=== PATIENT | female | born 1995 | race Caucasian/White ===

== ENCOUNTER 2020-05-10 12:41 | Inpatient (IN) | payer OTHER, MEDICAID ==
[~2020-05-10] VITALS: Ht 165.1 cm; Wt 78.9 kg
[2020-05-10 13:54] LABS: BASOPHILS % 0.3 % (0.0-2.0); EOSINOPHILS % 0.8 % (0.0-5.0); HEMATOCRIT. 32.5 % (36.0-48.0); HEMOGLOBIN. 10.9 g/dL (12.0-16.0); LYMPHOCYTES % 18.4 % (20.0-50.0); MEAN CORPUSCULAR HEMOGLOBIN 28.2 pg (28.0-32.0); MEAN CORPUSCULAR VOLUME 84.2 fL (81.0-99.0); MONOCYTES % 8.7 % (2.0-8.0); NEUTROPHILS % 71.8 % (40.0-76.0); PLATELET 248 x1000/uL (130-400); RED BLOOD CELL COUNT 3.86 mill/uL (4.2-5.4); RED CELL DISTRIBUTION WIDTH 14.4 % (11.6-14.6)
[2020-05-10 14:05] LABS: INR 0.9; PARTIAL THROMBOPLASTIN TIME 26.2 sec (23.4-31.0); PROTHROMBIN TIME 9.9 sec (9.6-11.0)
[2020-05-10 14:07] LABS: CLARITY URINE CLEAR (CLEAR); COLOR URINE YELLOW (YELLOW); KETONES URINE NEGATIVE (NEGATIVE); LEUKOCYTE ESTERASE URINE 1+ (NEGATIVE); NITRITE URINE NEGATIVE (NEGATIVE); OCCULT BLOOD URINE NEGATIVE (NEGATIVE); PROTEIN URINE NEGATIVE (NEGATIVE); SPECIFIC GRAVITY URINE 1.011 (1.005-1.030)
[2020-05-10 14:24] LABS: *AMPHETAMINES SCREEN URINE NEGATIVE (NEGATIVE); *BARBITURATES SCREEN URINE NEGATIVE (NEGATIVE); *BENZODIAZEPINES SCREEN URINE NEGATIVE (NEGATIVE); *COCAINE SCREEN URINE NEGATIVE (NEGATIVE); CANNABINOID URINE SCREEN NEGATIVE (NEGATIVE); METHADONE URINE SCREEN NEGATIVE (NEGATIVE); OPIATES URINE SCREEN NEGATIVE (NEGATIVE); PHENCYCLIDINE URINE SCREEN NEGATIVE (NEGATIVE)
[2020-05-10] MEDS ORDERED: FOLI-43 MT (14:45)
[2020-05-10] MEDS ORDERED: PREN1TAB78 MT (14:45)
[2020-05-10 14:49] LABS: HEPATITIS B SURFACE ANTIGEN NEGATIVE
[2020-05-10] MEDS ORDERED: LIDOCAINE HCL 1% 20ML VIAL (Pyxis) INJ INFIL SCH (15:15)
[2020-05-10] MEDS ORDERED: CARBOPROST TROMETHAMINE 250 MCG/ML AMPUL IM PRN (15:15)
[2020-05-10] MEDS ORDERED: NALOXONE HCL 0.4 MG/ML 1ML VIAL IM PRN (15:15)
[2020-05-10] MEDS ORDERED: METHYLERGONOVINE MALEATE 0.2 MG/ML IM PRN (15:15)
[2020-05-10] MEDS ORDERED: DEXT 5%/LR + PITOCIN 20UNITS/L 1,000 ML IV SCH ×2 (15:15→22:30)
[2020-05-10] MEDS ORDERED: BUTORPHANOL TARTRATE 2 MG/ML VIAL IV PRN (15:15)
[2020-05-10 15:21] LABS: CHLORIDE 110 mEq/L (98-107)
[2020-05-10 15:39] LABS: D-DIMER 0.97 mg/L FEU (<0.50)
[2020-05-10] MEDS ORDERED: MISOPROSTOL 100MCG TABLET VG PRN (17:00)
[2020-05-10] MEDS: LACTATED RINGERS 1,000 ML IV SCH (17:29)
[2020-05-10] MEDS ORDERED: MAGNESIUM 4 G PREMIX 100 ML IV ONE (19:30)
[2020-05-10] MEDS: MAGNESIUM 20 G PREMIX (L & D) 500 ML IV SCH (20:09)
[2020-05-10] MEDS ORDERED: MAGNESIUM 2 G PREMIX 50 ML IV ONE (23:30)
[2020-05-11] MEDS: LACTATED RINGERS 1,000 ML IV SCH ×3 (02:08→20:24)
[2020-05-11] MEDS: MAGNESIUM 20 G PREMIX (L & D) 500 ML IV SCH (06:03)
[2020-05-11] MEDS ORDERED: ROPIVACAINE HCL 10MG/ML 20 ML VIAL EPI ONE (06:30)
[2020-05-11] MEDS ORDERED: FENTANYL CITRATE/PF 50MCG/ML 2ML VIAL ONE (06:36)
[2020-05-11] MEDS ORDERED: BUPIVACAINE HCL/PF 0.25% (2.5MG/ML) 10ML ONE (06:36)
[2020-05-11] MEDS ORDERED: ROPIVACAINE HCL/PF EPIDURAL 200 ML EPI PRN ×2 (07:15→22:00)
[2020-05-11] MEDS ORDERED: ONDANSETRON HCL 4MG/2ML INJ IV PRN (07:30)
[2020-05-11] MEDS ORDERED: DIPHENHYDRAMINE 50MG/ML VIAL IV PRN (07:30)
[2020-05-11] MEDS ORDERED: ROPIVACAINE HCL/PF EPIDURAL 200 ML EPI SCH (07:30)
[2020-05-11] MEDS ORDERED: ROPIVACAINE HCL 2MG/ML (0.2%) 100ML BAG IR ONE (22:00)
[2020-05-12] MEDS ORDERED: AMPICILLIN 2,000 MG in SODIUM CHLORIDE 0.9% 100 ML IV SCH (02:00)
[2020-05-12] MEDS ORDERED: BISACODYL 10MG SUPP PR PRN (03:15)
[2020-05-12] MEDS ORDERED: GLYCERIN/WITCH HAZEL LEAF MEDICATED PAD TOP PRN (03:15)
[2020-05-12] MEDS ORDERED: ACETAMINOPHEN WITH CODEINE 300/30MG TABLET PO PRN (03:15)
[2020-05-12] MEDS ORDERED: HEMORRHOIDAL SUPP PR PRN (03:15)
[2020-05-12] MEDS ORDERED: DEXT 5%/LR + PITOCIN 20UNITS/L 1,000 ML IV SCH (03:15)
[2020-05-12] MEDS ORDERED: IBUPROFEN 400MG TABLET PO PRN (03:15)
[2020-05-12] MEDS ORDERED: LANOLIN OINT 7GM TUBE TOP PRN (03:15)
[2020-05-12] MEDS: IBUPROFEN 800MG TABLET PO PRN ×3 (03:48→19:29)
[2020-05-12 05:00] VITALS: BP 113/73
[2020-05-12 06:00] VITALS: BP 114/70
[2020-05-12] MEDS ORDERED: DIPHENHYDRAMINE 25MG CAPSULE PO PRN (07:00)
[2020-05-12] MEDS: MAGNESIUM/ALUMINUM HYDROXIDE/SIMETHICONE 30ML UDC PO SCH ×3 (07:30→21:19)
[2020-05-12 08:00] VITALS: BP 123/78
[2020-05-12] MEDS: SIMETHICONE 80MG TABLET CHEW PO SCH ×3 (08:00→21:19)
[2020-05-12] MEDS: PRENATAL VIT/FE FUMARATE/FA TABLET PO SCH (08:46)
[2020-05-12 15:48] VITALS: BP 123/84
[2020-05-12 20:00] VITALS: BP 114/73
[2020-05-12] MEDS ORDERED: DOCUSATE SODIUM 100MG CAPSULE PO SCH (21:00)
[2020-05-13] MEDS: IBUPROFEN 800MG TABLET PO PRN ×2 (02:02→08:41)
[2020-05-13 04:00] VITALS: BP 120/77
[2020-05-13 06:10] LABS: BASOPHILS % 0.2 % (0.0-2.0); EOSINOPHILS % 0.7 % (0.0-5.0); HEMATOCRIT. 23.6 % (36.0-48.0); HEMOGLOBIN. 7.8 g/dL (12.0-16.0); LYMPHOCYTES % 17.9 % (20.0-50.0); MEAN CORPUSCULAR HEMOGLOBIN 28.5 pg (28.0-32.0); MEAN PLATELET VOLUME 9.3 fl (7.4-10.4); MONOCYTES % 7.1 % (2.0-8.0); NEUTROPHILS % 74.1 % (40.0-76.0); PLATELET 170 x1000/uL (130-400); RED BLOOD CELL COUNT 2.75 mill/uL (4.2-5.4); RED CELL DISTRIBUTION WIDTH 14.5 % (11.6-14.6)
[2020-05-13] MEDS ORDERED: FERROUS SULFATE 325MG TABLET PO SCH (07:30)
[2020-05-13 08:30] VITALS: BP 123/82
[2020-05-13] MEDS: MAGNESIUM/ALUMINUM HYDROXIDE/SIMETHICONE 30ML UDC PO SCH (08:40)
[2020-05-13] MEDS: SIMETHICONE 80MG TABLET CHEW PO SCH (08:40)
[2020-05-13] MEDS: PRENATAL VIT/FE FUMARATE/FA TABLET PO SCH (08:41)
== END 2020-05-13 11:35 | disposition home or self-care (01) | DRG 807 ==
LOC: 8 EST LDRP 12:41 → OBSVTOIN 12:41 → 8EST 05-12 05:58
PROVIDERS: ADMIT Obstetrics & Gynecology; ATTEND Obstetrics & Gynecology
PROC: 10E0XZZ Delivery of Products of Conception, External Approach (ICD-10-PCS; principal; 2020-05-12)
PROC: 0KQM0ZZ Repair Perineum Muscle, Open Approach (ICD-10-PCS; 2020-05-12)
PROC: 3E0R3BZ Introduction of Anesthetic Agent into Spinal Canal, Percutaneous Approach (ICD-10-PCS; 2020-05-12)
PROC: 00HU33Z Insertion of Infusion Device into Spinal Canal, Percutaneous Approach (ICD-10-PCS; 2020-05-12)
DX: O13.4 Gestational [pregnancy-induced] hypertension without significant proteinuria, complicating childbirth (principal); Z37.0 Single live birth; O70.1 Second degree perineal laceration during delivery; Z3A.39 39 weeks gestation of pregnancy
CPT/HCPCS: 36415; 76805; 76818; 80053; 80305; 81003; 83735; 84550; 85025; 85379; 85384; 86592; 86703; 86762; 86850; 86900; 87340; 99281; J0290; J2590; J2795; J3010; J3475; J3490; J7050; J7120; A4315